=== PATIENT | female | born 1965 | race Caucasian/White ===

== ENCOUNTER 2022-11-19 15:10 | Emergency (ER) | payer OTHER ==
[~2022-11-19] VITALS: Ht 160 cm; Wt 90.5 kg
[2022-11-19 15:20] VITALS: TEMP 98
[2022-11-19] MEDS ORDERED: VALIUM 5MG T5 MG/TAB PO (16:20)
[2022-11-19] MEDS ORDERED: ROXICODONE 55 MG/TAB PO (16:20)
[2022-11-19 16:36] VITALS: BP 143/90; PULSE 87
== END 2022-11-19 16:40 | disposition home or self-care (01) ==
LOC: COL.ER 15:10
DX: M43.6 Torticollis (principal); E11.9 Type 2 diabetes mellitus without complications; Z28.310 Unvaccinated for COVID-19; W19.XXXA Unspecified fall, initial encounter